=== PATIENT | male | born 1985 ===

== ENCOUNTER 2021-06-12 18:25 | Observation (INO) ==
[2021-06-12 21:18] LABS: Basophils % 0.5 %; Eosinophils # 0.2 K/mcL (0.0-0.6); Eosinophils % 4.9 %; Hematocrit 47.3 % (37.5-50.1); Hemoglobin 16.1 g/dL (12.9-16.9); Immature Granulocytes % 0.2 % (0-4); Lymphocytes # 1.4 K/mcL (0.6-4.6); Lymphocytes % 33.6 %; Mean Corpuscular Hemoglobin 31.6 pg (28.0-33.3); Mean Corpuscular Volume 92.9 fL (83.0-100.0); Monocytes # 0.4 K/mcL (0.0-1.3); Monocytes % 8.5 %; Neutrophils # 2.2 K/mcL (1.6-8.9); Platelet Count 199 K/mcL (140-400); Red Blood Count 5.09 M/mcL (4.19-5.50); Red Cell Distribution Width 13.3 % (11.5-14.5); Segmented Neutrophils % 52.3 %; White Blood Count 4.3 K/mcL (4.3-11.1)
[2021-06-12 21:55] LABS: Alanine Aminotransferase 1015 Units/L (7-52); Albumin 4.1 g/dL (3.5-5.7); Albumin/Globulin Ratio 1.5 (1.1-2.2); Alkaline Phosphatase 404 Units/L (34-104); Aspartate Amino Transferase 818 Units/L (13-39); BUN/Creatinine Ratio 10 (6-26); Bilirubin,Direct 5.5 mg/dL (0.0-0.2); Bilirubin,Indirect 3.2 mg/dL (0.0-1.0); Bilirubin,Total 8.7 mg/dL (0.3-1.0); Blood Urea Nitrogen 8 mg/dL (6-20); Calcium 9.2 mg/dL (8.6-10.3); Carbon Dioxide 26 mEq/L (23-29); Chloride 102 mEq/L (98-107); Globulin 2.8 g/dL (2.4-3.5); Glucose 106 mg/dL (70-105); Lipase 23 Units/L (11-82); Osmolality,Calculated 279 (280-300); Potassium 3.9 mEq/L (3.5-5.1); Sodium 135 mEq/L (136-145); Total Protein 6.9 g/dL (6.4-8.9); eGFR For African Americans > 60 (> 60); eGFR For Non-African Americans > 60 (> 60)
[2021-06-12] MEDS ORDERED: Isovue-370 500 ML BOTTLE IVP ONE (22:34)
[2021-06-12 23:08] LABS: Bacteria,Urine Few per hpf (None-Few); Bilirubin,Urine Moderate (Negative); Blood,Urine Negative (Negative); Calcium Oxalate Crystals,Urine Present per hpf; Clarity,Urine Turbid (Clear); Color,Urine Dark-Yellow (Yellow); Glucose,Urine (UA) Normal (Normal); Ketones,Urine Negative (Negative); Leukocyte Esterase,Urine Negative (Negative); Nitrite,Urine Negative (Negative); Protein,Urine Negative (Neg-Trace); RBC,Urine 0-3 per hpf (0-3); Renal Epithelial Cells,Urine Few per hpf (None-Few); Specific Gravity,Urine 1.015 (1.010-1.025); Squamous Epithelial Cell,Urine Few per hpf (None-Few); WBC,Urine 0-3 per hpf (0-3)
[2021-06-12 23:16] LABS: Hepatitis B Surface Antigen Nonreactive (Nonreactive)
[2021-06-12 23:46] LABS: Hepatitis B Core IgM Nonreactive (Nonreactive)
[2021-06-12 23:47] LABS: Hepatitis A Antibody IgM Nonreactive (Nonreactive)
[2021-06-13] MEDS ORDERED: Naloxone 0.4 MG/ML INJ IVP PRN (02:13)
[2021-06-13 03:23] LABS: Hepatitis C Virus Antibody Reactive (Nonreactive)
[2021-06-13] MEDS: 0.9 % Sodium Chloride 1,000 ML IVC SCH ×2 (05:04→21:18)
[2021-06-13 08:09] LABS: Basophils % 0.7 %; Eosinophils # 0.2 K/mcL (0.0-0.6); Eosinophils % 5.3 %; Hematocrit 46.2 % (37.5-50.1); Hemoglobin 15.1 g/dL (12.9-16.9); Immature Granulocytes % 0.2 % (0-4); Lymphocytes # 1.5 K/mcL (0.6-4.6); Lymphocytes % 33.7 %; Mean Corpuscular HGB Conc 32.7 g/dL (31.6-35.5); Mean Corpuscular Hemoglobin 30.8 pg (28.0-33.3); Mean Corpuscular Volume 94.1 fL (83.0-100.0); Mean Platelet Volume 10.5 fL (9.4-12.4); Monocytes # 0.4 K/mcL (0.0-1.3); Monocytes % 9.3 %; Neutrophils # 2.2 K/mcL (1.6-8.9); Platelet Count 172 K/mcL (140-400); Red Blood Count 4.91 M/mcL (4.19-5.50); Red Cell Distribution Width 13.7 % (11.5-14.5); Segmented Neutrophils % 50.8 %; White Blood Count 4.3 K/mcL (4.3-11.1)
[2021-06-13 09:00] LABS: Alanine Aminotransferase 895 Units/L (7-52); Albumin 3.7 g/dL (3.5-5.7); Albumin/Globulin Ratio 1.5 (1.1-2.2); Alkaline Phosphatase 372 Units/L (34-104); Aspartate Amino Transferase 778 Units/L (13-39); BUN/Creatinine Ratio 12 (6-26); Bilirubin,Total 8.2 mg/dL (0.3-1.0); Blood Urea Nitrogen 9 mg/dL (6-20); Calcium 8.8 mg/dL (8.6-10.3); Carbon Dioxide 24 mEq/L (23-29); Chloride 104 mEq/L (98-107); Globulin 2.5 g/dL (2.4-3.5); Glucose 102 mg/dL (70-105); Osmolality,Calculated 279 (280-300); Sodium 135 mEq/L (136-145); Total Protein 6.2 g/dL (6.4-8.9); eGFR For African Americans > 60 (> 60); eGFR For Non-African Americans > 60 (> 60)
[2021-06-13] MEDS ORDERED: 0.9 % Sodium Chloride 500 ML IVC ONE (10:49)
[2021-06-13] MEDS ORDERED: ACETYLCYSTEINE IVC ONE ×3 (14:23→19:45)
[2021-06-13] MEDS ORDERED: D5 IVC ONE ×3 (14:23→19:45)
[2021-06-13] MEDS ORDERED: WATER IVC ONE ×3 (14:23→19:45)
[2021-06-14 11:55] LABS: Basophils % 0.5 %; Eosinophils # 0.2 K/mcL (0.0-0.6); Eosinophils % 4.4 %; Hematocrit 41.8 % (37.5-50.1); Hemoglobin 14.1 g/dL (12.9-16.9); Immature Granulocytes % 0.5 % (0-4); Lymphocytes # 1.7 K/mcL (0.6-4.6); Lymphocytes % 40.6 %; Mean Corpuscular HGB Conc 33.7 g/dL (31.6-35.5); Mean Corpuscular Hemoglobin 31.3 pg (28.0-33.3); Mean Corpuscular Volume 92.7 fL (83.0-100.0); Mean Platelet Volume 10.6 fL (9.4-12.4); Monocytes # 0.3 K/mcL (0.0-1.3); Monocytes % 8.4 %; Neutrophils # 1.9 K/mcL (1.6-8.9); Platelet Count 186 K/mcL (140-400); Red Blood Count 4.51 M/mcL (4.19-5.50); Red Cell Distribution Width 13.6 % (11.5-14.5); Segmented Neutrophils % 45.6 %; White Blood Count 4.1 K/mcL (4.3-11.1)
[2021-06-14 12:02] VITALS: BP 94/56; PULSE 62; TEMP 98.1; O2SAT 93
[2021-06-14 12:35] LABS: Platelet Estimate Normal (Normal); Reactive Lymphocytes Present (Not Present)
[2021-06-14 12:40] LABS: Alanine Aminotransferase 844 Units/L (7-52); Albumin 3.5 g/dL (3.5-5.7); Albumin/Globulin Ratio 1.5 (1.1-2.2); Alkaline Phosphatase 354 Units/L (34-104); Aspartate Amino Transferase 805 Units/L (13-39); BUN/Creatinine Ratio 19 (6-26); Bilirubin,Total 6.7 mg/dL (0.3-1.0); Blood Urea Nitrogen 14 mg/dL (6-20); Calcium 8.9 mg/dL (8.6-10.3); Carbon Dioxide 24 mEq/L (23-29); Chloride 106 mEq/L (98-107); Globulin 2.4 g/dL (2.4-3.5); Glucose 100 mg/dL (70-105); Osmolality,Calculated 285 (280-300); Potassium 3.7 mEq/L (3.5-5.1); Sodium 137 mEq/L (136-145); Total Protein 5.9 g/dL (6.4-8.9); eGFR For African Americans > 60 (> 60); eGFR For Non-African Americans > 60 (> 60)
[2021-06-16 10:08] LABS: HCV Quant Log 6.16 log IU/mL
[2021-06-16 15:08] LABS: HCV Quant Interpretation DETECTED (Not Detected)
== END 2021-06-14 15:20 | disposition home or self-care (01) ==
LOC: 3ANU 18:25 → EMEROOARM 18:25 → SUATTDRO 06-13 02:32 → 3ANU 06-13 03:23
PROVIDERS: ADMIT Internal Medicine; ATTEND Internal Medicine